=== PATIENT | female | born 1930 | race African-American/Black ===

== ENCOUNTER 2017-02-16 10:49 | Inpatient (IN) ==
[2017-02-16] MEDS ORDERED: NITROGLYCERIN 2% OINT 1 INCH/GM PACK TOP STA (11:01)
[2017-02-16] MEDS ORDERED: ONDANSETRON 4 MG/2 ML VIAL IV PRN ×2 (11:01→16:58)
[2017-02-16] MEDS ORDERED: ENOXAPARIN 100 MG/ML SYRINGE SUBCUT STA (11:01)
[2017-02-16] MEDS ORDERED: MORPHINE 2 MG/1 ML SYRINGE IV PRN ×2 (11:01→16:58)
[2017-02-16] MEDS ORDERED: ASPIRIN 325 MG TABLET PO STA (11:01)
[2017-02-16 11:11] LABS: Basophils % 0.3 % (0.0-0.8); Eosinophils # 0.4 10*3/uL (0.0-0.87); Eosinophils % 5.9 % (0.00-10.9); Hematocrit 34.8 VOL% (35.7-47.0); Hemoglobin 11.9 GM/DL (12.0-16.0); Immature Granulocytes % 0.3 %; Immature Granulocytes Absolute 0.02 #; Lymphocytes # 1.5 10*3/uL (1.4-4.0); Lymphocytes % 24.1 % (21.3-54.2); Mean Corpuscular HGB Conc 34.2 GM/DL (32-36); Mean Corpuscular Hemoglobin 31 PG (27-34); Mean Corpuscular Volume 91.1 FL (87-102); Mean Platelet Volume 10.6 FL (9.6-12.0); Monocytes # 0.5 10*3/uL (0.11-0.8); Neutrophils % 62.4 % (38.7-73.9); Platelet Count 173 T/CUMM (130-400); Red Blood Count 3.82 MC/CUMM (3.8-5.5); Red Cell Distribution Width 13.7 % (9.3-17.3); White Blood Count 6.4 T/CUMM (4-12)
[2017-02-16] MEDS ORDERED: ENOXAPARIN 60 MG/0.6 ML SYRINGE ONE (11:16)
[2017-02-16] MEDS ORDERED: MORPHINE 2 MG/1 ML SYRINGE ONE (11:16)
[2017-02-16] MEDS ORDERED: NITROGLYCERIN 2% OINT 1 INCH/GM PACK TOP ONE (11:16)
[2017-02-16] MEDS ORDERED: ONDANSETRON 4 MG/2 ML VIAL ONE (11:16)
[2017-02-16 11:22] LABS: PT Patient Result 10.5 SECS; Partial Thromboplastin Time 24.4 SECS (0-40)
[2017-02-16 11:50] LABS: Albumin 3.6 G/DL (3.4-5.0); Bilirubin,Total 0.6 MG/DL (0.2-1.0); Calcium 9.4 MG/DL (8.5-10.1); Potassium 4.4 MMOL/L (3.5-5.1); Total Protein 6.6 G/DL (6.4-8.3)
[2017-02-16] MEDS ORDERED: MELATONIN 3 MG TABLET PO PRN (15:24)
[2017-02-16] MEDS ORDERED: LORazepam 1 MG TABLET PO PRN (15:24)
[2017-02-16] MEDS ORDERED: ACETAMINOPHEN 325 MG TABLET PO PRN ×2 (15:24→16:58)
[2017-02-16] MEDS ORDERED: guaiFENesin 200 MG/10 ML UDCUP PO PRN (15:24)
[2017-02-16] MEDS ORDERED: DEXTROSE 50% 25 GM/50 ML VIAL IV PRN ×2 (15:28→16:58)
[2017-02-16] MEDS ORDERED: GLUCAGON 1 MG VIAL IM PRN ×2 (15:28→16:58)
[2017-02-16] MEDS ORDERED: INSULIN REGULAR 100 UNIT/ML SUBCUT SCH (16:30)
[2017-02-16] MEDS ORDERED: NITROGLYCERIN SL 0.4 MG TABLET SL PRN (16:58)
[2017-02-16] MEDS: SODIUM CHLORIDE 0.9% 1,000 ML IV SCH (19:14)
[2017-02-16] MEDS: ALBUTEROL/IPRATROPIUM 3 ML NEB RESP TX SCH (19:27)
[2017-02-16] MEDS ORDERED: CARVEDILOL 3.125 MG TABLET PO SCH (21:00)
[2017-02-16] MEDS ORDERED: NON-FORMULARY MEDICATION (Docusate Sodium [Docusate Sodium] 100 MG) PO SCH (21:00)
[2017-02-16] MEDS: traZODone 50 MG TABLET PO SCH (21:17)
[2017-02-16] MEDS: CARVEDILOL 6.25 MG TABLET PO SCH (21:17)
[2017-02-16] MEDS: ISOSORBIDE DINITRATE 20 MG TABLET PO SCH (21:17)
[2017-02-16] MEDS: MEMANTINE 10 MG TABLET PO SCH (21:17)
[2017-02-16] MEDS: INSULIN LISPRO 100 UNIT/ML SUBCUT SCH ×2 (21:17→21:38)
[2017-02-16] MEDS: DOCUSATE SODIUM 100 MG CAPSULE PO SCH (21:17)
[2017-02-16] MEDS: LACTULOSE 160 GM/240 ML BOTTLE PO SCH (21:38)
[2017-02-17] MEDS: SODIUM CHLORIDE 0.9% 1,000 ML IV SCH ×4 (02:56→16:54)
[2017-02-17] MEDS ORDERED: LEVOTHYROXINE 25 MCG TABLET PO SCH (06:00)
[2017-02-17] MEDS: ALBUTEROL/IPRATROPIUM 3 ML NEB RESP TX SCH ×3 (07:07→20:18)
[2017-02-17] MEDS ORDERED: INSULIN GLARGINE 100 UNIT/ML SUBCUT SCH (08:00)
[2017-02-17] MEDS: INSULIN LISPRO 100 UNIT/ML SUBCUT SCH ×4 (08:46→21:52)
[2017-02-17] MEDS ORDERED: ASPIRIN CHEW 81 MG TABLET PO SCH (09:00)
[2017-02-17] MEDS ORDERED: DULoxetine 30 MG CAPSULE PO SCH (09:00)
[2017-02-17] MEDS ORDERED: PANTOPRAZOLE 40 MG TABLET PO SCH ×2 (09:00)
[2017-02-17] MEDS ORDERED: MONTELUKAST 10 MG TABLET PO SCH (09:00)
[2017-02-17] MEDS ORDERED: THEOPHYLLINE ER (24 HR) 200 MG CAPSULE PO SCH (09:00)
[2017-02-17] MEDS ORDERED: POTASSIUM CHLORIDE 8 MEQ CAPSULE PO SCH (09:00)
[2017-02-17] MEDS ORDERED: FUROSEMIDE 40 MG TABLET PO SCH (09:00)
[2017-02-17] MEDS ORDERED: ATORVASTATIN 20 MG TABLET PO SCH (09:00)
[2017-02-17] MEDS ORDERED: METOPROLOL TARTRATE 5 MG/5 ML VIAL IV PRN (09:05)
[2017-02-17] MEDS ORDERED: hydrALAZINE 20 MG/1 ML VIAL IV PRN (09:09)
[2017-02-17] MEDS ORDERED: LORazepam 2 MG/1 ML VIAL IV PRN (09:13)
[2017-02-17] MEDS ORDERED: POTASSIUM CHLORIDE RIDER 10 MEQ in PREMIX 1 EACH IV PRN (09:14)
[2017-02-17] MEDS: MULTIVITAMIN (CENTRUM) TABLET PO SCH (09:17)
[2017-02-17 10:00] LABS: Calcium 8.6 MG/DL (8.5-10.1); Magnesium 2.4 MG/DL (1.8-2.4); Osmolality,Calculated 276.8 MOS/KG (273-304); Potassium 4.7 MMOL/L (3.5-5.1)
[2017-02-17] MEDS: CARVEDILOL 6.25 MG TABLET PO SCH ×2 (10:26→21:53)
[2017-02-17] MEDS: DOCUSATE SODIUM 100 MG CAPSULE PO SCH (10:26)
[2017-02-17] MEDS: LACTULOSE 160 GM/240 ML BOTTLE PO SCH (10:26)
[2017-02-17] MEDS: traZODone 50 MG TABLET PO SCH (10:27)
[2017-02-17] MEDS: MEMANTINE 10 MG TABLET PO SCH (10:27)
[2017-02-17] MEDS: ISOSORBIDE DINITRATE 20 MG TABLET PO SCH (10:27)
[2017-02-17] MEDS: FUROSEMIDE 20 MG/2 ML VIAL IV SCH (11:35)
[2017-02-17] MEDS: ENOXAPARIN 40 MG/0.4 ML SYRINGE SUBCUT SCH (11:35)
[2017-02-17] MEDS: ZINC OXIDE PASTE 113 GM TUBE TOP SCH ×2 (14:42→21:59)
[2017-02-17] MEDS ORDERED: CARVEDILOL 6.25 MG TABLET PO SCH (21:00)
[2017-02-18 04:48] LABS: Basophils % 0.1 % (0.0-0.8); Eosinophils # 0.3 10*3/uL (0.0-0.87); Eosinophils % 4.6 % (0.00-10.9); Hematocrit 35.7 VOL% (35.7-47.0); Hemoglobin 12.1 GM/DL (12.0-16.0); Immature Granulocytes % 0.3 %; Immature Granulocytes Absolute 0.02 #; Lymphocytes # 1.2 10*3/uL (1.4-4.0); Lymphocytes % 17.8 % (21.3-54.2); Mean Corpuscular HGB Conc 33.9 GM/DL (32-36); Mean Corpuscular Hemoglobin 31 PG (27-34); Mean Corpuscular Volume 91.3 FL (87-102); Mean Platelet Volume 11.2 FL (9.6-12.0); Monocytes # 0.4 10*3/uL (0.11-0.8); Monocytes % 6.2 % (1.7-12.7); Neutrophils # 4.8 10*3/uL (1.4-7.4); Platelet Count 147 T/CUMM (130-400); Red Blood Count 3.91 MC/CUMM (3.8-5.5); Red Cell Distribution Width 13.4 % (9.3-17.3); White Blood Count 6.8 T/CUMM (4-12)
[2017-02-18 05:18] LABS: Calcium 9.2 MG/DL (8.5-10.1); Magnesium 2.2 MG/DL (1.8-2.4); Osmolality,Calculated 277.5 MOS/KG (273-304)
[2017-02-18 05:30] LABS: Risk Ratio 2.16; VLDL CHOLESTEROL 34.2 MG/DL
[2017-02-18] MEDS: ALBUTEROL/IPRATROPIUM 3 ML NEB RESP TX SCH ×3 (07:25→19:54)
[2017-02-18] MEDS: INSULIN LISPRO 100 UNIT/ML SUBCUT SCH ×4 (09:08→21:21)
[2017-02-18] MEDS: CARVEDILOL 6.25 MG TABLET PO SCH ×2 (09:27→21:19)
[2017-02-18] MEDS: ZINC OXIDE PASTE 113 GM TUBE TOP SCH ×2 (09:27→21:20)
[2017-02-18] MEDS: ISOSORBIDE MONONITRATE 30 MG TABLET PO SCH (09:27)
[2017-02-18] MEDS: ASPIRIN EC 81 MG TABLET PO SCH (09:27)
[2017-02-18] MEDS: LISINOPRIL 2.5 MG TABLET PO SCH (09:27)
[2017-02-18] MEDS: MULTIVITAMIN (CENTRUM) TABLET PO SCH (09:28)
[2017-02-18] MEDS: INSULIN GLARGINE 100 UNIT/ML SUBCUT SCH (09:28)
[2017-02-18] MEDS: FUROSEMIDE 20 MG/2 ML VIAL IV SCH (09:28)
[2017-02-18] MEDS: ENOXAPARIN 40 MG/0.4 ML SYRINGE SUBCUT SCH (11:11)
[2017-02-18] MEDS ORDERED: ACETAMINOPHEN 500 MG TABLET PO PRN (11:42)
[2017-02-18] MEDS: THEOPHYLLINE ER (24 HR) 200 MG CAPSULE PO SCH (12:19)
[2017-02-18] MEDS: DULoxetine 30 MG CAPSULE PO SCH (12:19)
[2017-02-18] MEDS: traZODone 50 MG TABLET PO SCH ×2 (12:19→21:20)
[2017-02-18] MEDS: MEMANTINE 10 MG TABLET PO SCH (21:19)
[2017-02-19 05:21] LABS: Basophils % 0.2 % (0.0-0.8); Eosinophils # 0.2 10*3/uL (0.0-0.87); Eosinophils % 4.1 % (0.00-10.9); Hematocrit 29.4 VOL% (35.7-47.0); Immature Granulocytes % 0.5 %; Immature Granulocytes Absolute 0.03 #; Lymphocytes # 1.4 10*3/uL (1.4-4.0); Lymphocytes % 25.6 % (21.3-54.2); Mean Corpuscular Hemoglobin 31 PG (27-34); Mean Corpuscular Volume 90.5 FL (87-102); Mean Platelet Volume 10.3 FL (9.6-12.0); Monocytes # 0.5 10*3/uL (0.11-0.8); Monocytes % 8.8 % (1.7-12.7); Neutrophils # 3.4 10*3/uL (1.4-7.4); Neutrophils % 60.8 % (38.7-73.9); Platelet Count 136 T/CUMM (130-400); Red Blood Count 3.25 MC/CUMM (3.8-5.5); Red Cell Distribution Width 13.3 % (9.3-17.3); White Blood Count 5.6 T/CUMM (4-12)
[2017-02-19 05:50] LABS: Calcium 9.2 MG/DL (8.5-10.1); Magnesium 2.2 MG/DL (1.8-2.4); Osmolality,Calculated 283.3 MOS/KG (273-304); Potassium 3.9 MMOL/L (3.5-5.1)
[2017-02-19] MEDS: LEVOTHYROXINE 25 MCG TABLET PO SCH (06:43)
[2017-02-19] MEDS: INSULIN GLARGINE 100 UNIT/ML SUBCUT SCH (07:37)
[2017-02-19] MEDS: INSULIN LISPRO 100 UNIT/ML SUBCUT SCH ×3 (07:37→15:37)
[2017-02-19] MEDS: ALBUTEROL/IPRATROPIUM 3 ML NEB RESP TX SCH ×3 (08:37→19:22)
[2017-02-19] MEDS: DULoxetine 30 MG CAPSULE PO SCH (08:51)
[2017-02-19] MEDS: CARVEDILOL 6.25 MG TABLET PO SCH ×2 (08:51→20:52)
[2017-02-19] MEDS: traZODone 50 MG TABLET PO SCH ×2 (08:51→20:52)
[2017-02-19] MEDS: THEOPHYLLINE ER (24 HR) 200 MG CAPSULE PO SCH (08:51)
[2017-02-19] MEDS: ISOSORBIDE MONONITRATE 30 MG TABLET PO SCH (08:51)
[2017-02-19] MEDS: MEMANTINE 10 MG TABLET PO SCH ×2 (08:51→20:52)
[2017-02-19] MEDS: ZINC OXIDE PASTE 113 GM TUBE TOP SCH ×2 (08:51→20:51)
[2017-02-19] MEDS: LISINOPRIL 2.5 MG TABLET PO SCH (08:51)
[2017-02-19] MEDS: MULTIVITAMIN (CENTRUM) TABLET PO SCH (08:52)
[2017-02-19] MEDS: FUROSEMIDE 20 MG/2 ML VIAL IV SCH (09:04)
[2017-02-19] MEDS: ASPIRIN EC 81 MG TABLET PO SCH (09:42)
[2017-02-19] MEDS: ENOXAPARIN 40 MG/0.4 ML SYRINGE SUBCUT SCH (11:43)
[2017-02-20] MEDS: INSULIN LISPRO 100 UNIT/ML SUBCUT SCH ×5 (01:01→20:46)
[2017-02-20] MEDS: ALBUTEROL/IPRATROPIUM 3 ML NEB RESP TX SCH ×3 (07:15→20:38)
[2017-02-20 07:50] LABS: Basophils % 0.1 % (0.0-0.8); Eosinophils # 0.2 10*3/uL (0.0-0.87); Eosinophils % 2.7 % (0.00-10.9); Hematocrit 33.1 VOL% (35.7-47.0); Hemoglobin 11.4 GM/DL (12.0-16.0); Immature Granulocytes % 0.3 %; Immature Granulocytes Absolute 0.02 #; Lymphocytes % 13.2 % (21.3-54.2); Mean Corpuscular HGB Conc 34.4 GM/DL (32-36); Mean Corpuscular Hemoglobin 31 PG (27-34); Mean Corpuscular Volume 90.2 FL (87-102); Monocytes # 0.5 10*3/uL (0.11-0.8); Monocytes % 6.1 % (1.7-12.7); Neutrophils # 5.7 10*3/uL (1.4-7.4); Neutrophils % 77.6 % (38.7-73.9); Platelet Count 151 T/CUMM (130-400); Red Blood Count 3.67 MC/CUMM (3.8-5.5); Red Cell Distribution Width 13.2 % (9.3-17.3); White Blood Count 7.3 T/CUMM (4-12)
[2017-02-20 08:20] LABS: Calcium 9.4 MG/DL (8.5-10.1); Osmolality,Calculated 284.4 MOS/KG (273-304)
[2017-02-20] MEDS ORDERED: LIDOCAINE 2% 5 ML VIAL ONE (12:24)
[2017-02-20] MEDS ORDERED: PROPOFOL 200 MG/20 ML VIAL IV ONE (12:24)
[2017-02-20] MEDS: CARVEDILOL 6.25 MG TABLET PO SCH ×2 (14:59→20:37)
[2017-02-20] MEDS: traZODone 50 MG TABLET PO SCH ×2 (14:59→20:38)
[2017-02-20] MEDS: MEMANTINE 10 MG TABLET PO SCH ×2 (15:00→20:37)
[2017-02-20] MEDS: INSULIN GLARGINE 100 UNIT/ML SUBCUT SCH (15:01)
[2017-02-20] MEDS: THEOPHYLLINE ER (24 HR) 200 MG CAPSULE PO SCH (15:13)
[2017-02-20] MEDS: DULoxetine 30 MG CAPSULE PO SCH (15:13)
[2017-02-20] MEDS: ISOSORBIDE MONONITRATE 30 MG TABLET PO SCH (15:14)
[2017-02-20] MEDS: ASPIRIN EC 81 MG TABLET PO SCH (15:14)
[2017-02-20] MEDS: LISINOPRIL 2.5 MG TABLET PO SCH (15:14)
[2017-02-20] MEDS: MULTIVITAMIN (CENTRUM) TABLET PO SCH (15:14)
[2017-02-20] MEDS: FUROSEMIDE 20 MG/2 ML VIAL IV SCH (15:15)
[2017-02-20] MEDS: ZINC OXIDE PASTE 113 GM TUBE TOP SCH ×2 (15:15→20:54)
[2017-02-20] MEDS: LEVOTHYROXINE 25 MCG TABLET PO SCH (15:15)
[2017-02-21] MEDS: ALBUTEROL/IPRATROPIUM 3 ML NEB RESP TX SCH ×2 (07:14→13:05)
[2017-02-21] MEDS: THEOPHYLLINE ER (24 HR) 200 MG CAPSULE PO SCH (09:09)
[2017-02-21] MEDS: LISINOPRIL 2.5 MG TABLET PO SCH (09:10)
[2017-02-21] MEDS: CARVEDILOL 6.25 MG TABLET PO SCH (09:10)
[2017-02-21] MEDS: traZODone 50 MG TABLET PO SCH (09:11)
[2017-02-21] MEDS: MULTIVITAMIN (CENTRUM) TABLET PO SCH (09:11)
[2017-02-21] MEDS: ISOSORBIDE MONONITRATE 30 MG TABLET PO SCH (09:11)
[2017-02-21] MEDS: MEMANTINE 10 MG TABLET PO SCH (09:11)
[2017-02-21] MEDS: DULoxetine 30 MG CAPSULE PO SCH (09:11)
[2017-02-21] MEDS: INSULIN LISPRO 100 UNIT/ML SUBCUT SCH (09:12)
[2017-02-21] MEDS: ASPIRIN EC 81 MG TABLET PO SCH (09:12)
[2017-02-21] MEDS: FUROSEMIDE 20 MG/2 ML VIAL IV SCH (09:12)
[2017-02-21] MEDS: LEVOTHYROXINE 25 MCG TABLET PO SCH (09:12)
[2017-02-21] MEDS: ZINC OXIDE PASTE 113 GM TUBE TOP SCH (09:12)
[2017-02-21] MEDS: INSULIN GLARGINE 100 UNIT/ML SUBCUT SCH (09:13)
[2017-02-21 13:58] VITALS: BP 134/78
== END 2017-02-21 14:20 | disposition home or self-care (01) | DRG 313 ==
LOC: EDBD → EDUNIT# → N.EDINP 10:49 → N.ED 10:49 → N.TELEN 18:58
PROVIDERS: ADMIT Internal Medicine; ATTEND Internal Medicine